=== PATIENT | male | born 1955 | race Two or more races ===

== ENCOUNTER 2016-08-17 17:58 | Inpatient (IN) | payer OTHER ==
[~2016-08-17] VITALS: Ht 172.7 cm; Wt 107.0 kg
[2016-08-17] MEDS: IV NORMAL SALINE 1000ML BAG 1,000 ML IV SCH (00:45)
[~2016-08-17 17:58] MED LIST: AMLO5TAB2 PO; CARV12.52 PO; FURO40TA4 PO; HYDR-2762 PO; INSU100C4 SQ; INSU100I13 SQ; LISI-334 PO; LOSA50TA2 PO
[2016-08-17 18:40] LABS: HEMATOCRIT 34.9 % (39.0-53.0); HEMOGLOBIN 10.9 g/dL (13.0-17.5); MEAN CORPUSCULAR HEMOGLOBIN 23 pg (25-35); MEAN CORPUSCULAR HGB CONC 31 g/dL (31-37); MEAN CORPUSCULAR VOLUME 73 fL (79-100); RED BLOOD COUNT 4.77 x10^6/uL (4.30-5.70); RED CELL DISTRIBUTION WIDTH 17.6 % (11.5-14.5); WHITE BLOOD COUNT 8.4 x10^3/uL (4.0-11.0)
[2016-08-17 18:41] LABS: BASO % 0 % (0-3); EOS % 3 % (0-3); LYMPH # 1.4 x10^3/uL (1.0-4.8); LYMPH % 16 % (24-48); MONO % 8 % (0-9); NEUT % 73 % (31-73); PLATELET COUNT 242 x10^3/uL (140-400)
[2016-08-17 18:55] LABS: CALCIUM 8.8 mg/dL (8.5-10.1); CREATININE 1.9 mg/dL (0.7-1.3); GFR 36.2; POTASSIUM 4.6 mmol/L (3.5-5.1)
[2016-08-17] MEDS ORDERED: DEXTROSE 50% 25 GM / 50ML DISP.SYRIN. IV ONE ×2 (18:57→19:00)
[2016-08-17] MEDS ORDERED: IV NORMAL SALINE 1000ML BAG 1,000 ML IV ONE (19:15)
--- NOTE | 2016-08-17 19:30 | RAD ---
PROCEDURE CT head without intravenous contrast. HISTORY Altered mental status, evaluate for hemorrhage. TECHNIQUE Axial images are obtained of the head from the skull base through the vertex without IV contrast Exposure: One or more of the following individualized dose reduction techniques were utilized for this examination: 1. Automated exposure control. 2. Adjustment of the mA and/or kV according to patient size. 3. Use of iterative reconstruction technique. COMPARISON CT head June 24, 2016. FINDINGS The ventricles are appropriate in size, shape, and location for the patient's age.No obvious intracranial mass, mass-effect, midline shift, hemorrhage or obvious acute infarction is identified.Basilar cisterns are patent. Bone windows demonstrate no acute calvarial abnormality.Bilateral maxillary sinuses and ethmoid mucosal disease is seen.. IMPRESSION No acute intracranial process. Please note that CT can be relatively insensitive to acute ischemic infarction for up to 24 hours after symptom onset. Electronically signed by: Ashok Landers MD (Aug 17, 2016 19:28:37)
[2016-08-17 19:34] LABS: PLT ESTIMATE ADEQUATE (ADEQUATE)
[2016-08-17 19:35] LABS: ANISOCYTOSIS SLIGHT; HYPOCHROMIA MOD; POIKILOCYTOSIS SLIGHT
[2016-08-17 19:38] LABS: MICROCYTOSIS SLIGHT
--- NOTE | 2016-08-17 21:07 | PHYS DOC ---
Past Medical History Past Medical History: Diabetes-Type II, Hypertension Past Surgical History: Other Additional Past Surgical Histo: LEFT TOE AMPUTATION, LEG LEG SKIN GRAFT D/T WOUND,KNEE Alcohol Use: None Drug Use: None Adult General Chief Complaint Chief Complaint: ALTERED MENTAL STATUS HPI HPI 60-year-old male presents with an episode of unresponsiveness after her being found on the sidewalk. In the ED, his blood sugar was 35 and an amp of D50 was administered. Patient is still altered and can answer basic questions but appears confused. His rectal temp upon arrival was 93.6. Patient was actively warmed with a bear hugger. His at bedside states he had a similar hypoglycemic episode around the and was admitted for it at that time. There are no obvious injuries. The patient does not have any specific complaints. He is in no acute distress. Review of Systems Review of Systems Constitutional: Denies fever or chills [] Eyes: Denies change in visual acuity, redness, or eye pain [] HENT: Denies nasal congestion or sore throat [] Respiratory: Denies cough or shortness of breath [] Cardiovascular: No additional information not addressed in HPI [] GI: Denies abdominal pain, nausea, vomiting, bloody stools or diarrhea [] : Denies dysuria or hematuria [] Musculoskeletal: Denies back pain or joint pain [] Integument: Denies rash or skin lesions [] Neurologic: Denies headache, focal weakness or sensory changes [] Endocrine: Denies polyuria or polydipsia [] Current Medications Current Medications Current Medications Medications (Trade) Dose Ordered Sig/Mary Start Time Stop Time Status Last Admin Dose Admin Acetaminophen (Tylenol) 650 mg PRN Q4HRS PRN 08/17/16 21:15 08/18/16 21:14 Dextrose 25 gm 1X ONCE 08/17/16 19:00 08/17/16 19:01 DC 08/17/16 18:59 25 GM Ondansetron HCl 4 mg 4 mg PRN Q8HRS PRN 08/17/16 21:15 08/18/16 21:14 Sodium Chloride (Iv Sodium Chloride 0.9% 1000ml Bag) 1,000 ml @ 50 mls/hr Q20H 08/17/16 21:07 08/18/16 21:06 Allergies Allergies Allergies Coded Allergies Type Severity Reaction Last Updated Verified No Known Drug Allergies 1/21/15 No Physical Exam Physical Exam Constitutional: Well developed, well nourished, no acute distress, non-toxic appearance. [] HENT: Normocephalic, atraumatic, bilateral external ears normal, oropharynx moist, no oral exudates, nose normal. [] Eyes: PERRLA, EOMI, conjunctiva normal, no discharge. [] Neck: Normal range of motion, no tenderness, supple, no stridor. [] Cardiovascular:Heart rate regular rhythm, no murmur [] Lungs & Thorax: Bilateral breath sounds clear to auscultation [] Abdomen: Bowel sounds normal, soft, no tenderness, no masses, no pulsatile masses. [] Skin: Warm, dry, no erythema, no rash. [] Back: No tenderness, no CVA tenderness. [] Extremities: No tenderness, no cyanosis, no clubbing, ROM intact, no edema. [] Neurologic: Alert and oriented X 1 (place), normal motor function, normal sensory function, no focal deficits noted. [] Psychologic: Affect normal, judgement normal, mood normal. [] Current Patient Data Vital Signs Vital Signs Date Time Temp Pulse Resp B/P Pulse Ox O2 Delivery O2 Flow Rate FiO2 08/17/16 20:50 97.5 97.5 08/17/16 20:04 70 18 191/102 98 Room Air Lab Values Laboratory Tests Test 08/17/16 18:30 White Blood Count 8.4x10^3/uL (4.0-11.0) Red Blood Count 4.77x10^6/uL (4.30-5.70) Hemoglobin 10.9g/dL (13.0-17.5) L Hematocrit 34.9% (39.0-53.0) L Mean Corpuscular Volume 73fL (79-100) L Mean Corpuscular Hemoglobin 23pg (25-35) L Mean Corpuscular Hemoglobin Concent 31g/dL (31-37) Red Cell Distribution Width 17.6% (11.5-14.5) H Platelet Count 242x10^3/uL (140-400) Neutrophils (%) (Auto) 73% (31-73) Lymphocytes (%) (Auto) 16% (24-48) L Monocytes (%) (Auto) 8% (0-9) Eosinophils (%) (Auto) 3% (0-3) Basophils (%) (Auto) 0% (0-3) Neutrophils # (Auto) 6.1x10^3uL (1.8-7.7) Lymphocytes # (Auto) 1.4x10^3/uL (1.0-4.8) Monocytes # (Auto) 0.6x10^3/uL (0.0-1.1) Eosinophils # (Auto) 0.2x10^3/uL (0.0-0.7) Basophils # (Auto) 0.0x10^3/uL (0.0-0.2) Platelet Estimate Adequate (ADEQUATE) Hypochromasia Mod Poikilocytosis Slight Anisocytosis Slight Microcytosis Slight Sodium Level 143mmol/L (136-145) Potassium Level 4.6mmol/L (3.5-5.1) Chloride Level 111mmol/L (98-107) H Carbon Dioxide Level 24mmol/L (21-32) Anion Gap 8 (6-14) Blood Urea Nitrogen 40mg/dL (8-26) H Creatinine 1.9mg/dL (0.7-1.3) H Estimated GFR (Cockcroft-Gault) 36.2 Glucose Level 35mg/dL (70-99) *L Calcium Level 8.8mg/dL (8.5-10.1) Laboratory Tests 08/17/16 18:30 Laboratory Tests 08/17/16 18:30 EKG EKG [] Radiology/Procedures Radiology/Procedures CT of his head did not demonstrate an acute intercranial process as interpreted by the radiologist. One view of his chest did not demonstrate an acute process as interpreted by me. Course & Med Decision Making Course & Med Decision Making Pertinent Labs and Imaging studies reviewed. (See chart for details) 60-year-old male who presents with altered mental status after a suspected hypoglycemic episode was given an amp of D50 and his blood glucose rechecked and it was 120. Patient was given a liter bolus and then fluids were set at 50 mL an hour per Dr. Martins's recommendation. Patient's mental status has improved while in the department but he still appears slightly confused. CT of his head was negative for any traumatic injury or abnormality. Patient was actively rewarmed and his temperature improved to 97.5 Fahrenheit. The rest of his laboratory workup was essentially unremarkable. Dragon Disclaimer Dragon Disclaimer This electronic medical record was generated, in whole or in part, using a voice recognition dictation system. Departure Departure Impression: Primary Impression: Hypoglycemia Additional Impressions: Altered mental status Hypothermia Disposition: ADMITTED INPATIENT Admitting Physician: Other Condition: STABLE Referrals: CLAUDIA MARTINS MD (PCP) Problem Qualifiers MENG PRIETO DO Aug 17, 2016 21:07
[2016-08-17] MEDS ORDERED: ACETAMINOPHEN 325 MG TABLET. PO PRN (21:15)
[2016-08-17] MEDS ORDERED: ONDANSETRON PF 4 MG/2 ML VIAL. IV PRN (21:15)
[2016-08-17 22:07] LABS: BILIRUBIN,URINE NEGATIVE (NEG); GLUCOSE,URINE NEGATIVE (NEG); NITRITE,URINE POSITIVE (NEG); PH,URINE 5.5; PROTEIN,URINE >=300 mg/dL (NEG-TRACE); UROBILINOGEN,URINE 0.2 mg/dL (0.2 mg/dL)
[2016-08-17 22:14] LABS: BACTERIA,URINE MANY /HPF (0-FEW); RBC,URINE 0 /HPF (0-2); WBC,URINE TNTC /HPF (0-4)
[2016-08-17 22:15] LABS: SQUAMOUS EPITHELIAL CELL,UR FEW /LPF
--- NOTE | 2016-08-17 22:50 | ACF ---
Admission Forms Criteria MENTAL STATUS CHANGE Clinical Indications for Inpatient Care (Place 'X' for any and all applicable criteria): Ongoing inpatient care may be needed for ANY ONE of the following(1)(2)(3)(5)(6) : [X]I. Suspected serious etiology (eg, medical disorder, GAS CUTTING MACHINE OPERATOR event) of mental status change [ ]II. Danger to self or others not manageable at lower level of care [ ]III. Grave disability (eg, inability to perform self care necessary at lower level of care) [ ]IV. Agitation or inappropriate behavior interfering with care for primary condition (eg, attempting to discontinue lines or drains prematurely, unable to cooperate with respiratory care) [ ]V. Delirium [A] [D][E] as described by ANY ONE of the following(26): [ ]a) Delirium due to alcohol or sedative [F] withdrawal [ ]b) Delirium of uncertain etiology that has not responded to appropriate empiric treatment [ ]c) Delirium that prevents performance of a life-sustaining function (eg, feeding or hydrating oneself) [ ]. General contraindications and/or Inappropriate clinical situations for Observational Care in patients with Mental Status Change, when ANY ONE of the following is required: [ ]a) Prediction of prolongation of LOS based on ANY ONE of the following may be considered as a contraindication for observational care 2, 3, 4, 5, 6, 7, 8, 9, 10, 11 [ ]i) Age > 65 yrs. [ ]ii) Patient arriving by ambulance [ ]iii) Patient with high acuity [ ]iv) Patient requiring vital sign monitoring [ ]v) Patient on IV medication [ ]b) Systolic blood pressures 180mmHg 3,12 [ ]c) Patient with altered mental status including delirium and other alteration of consciousness, (3) [ ]d) Patient whose discharge disposition will be to a [place] [facility] home or rehabilitation home should not be managed in Emergency Department Observation Unit. CMS rule requires 3 days hospital stay before such placement.3,13 [ ]e) Patient with failure to thrive due to broad array of etiologies 3,16,17 [ ]f) Inability to ambulate 3,14 Extended stay beyond goal length of stay for the primary condition may be needed until ALL of the following are present(3)(5): [ ]a) Underlying medical etiology of mental status change is absent, or has been established and adequately treated [ ]b) Danger to self or others is absent or manageable at lower level of care. [ ]c) Behavior crisis management, including physical or chemical restraints, is not required or available at lower level of car [ ]d) Substance or alcohol withdrawal is absent or manageable at lower level of care. [ ]e) Behavioral symptoms (eg, agitation, somnolence, inappropriate behavior) are absent, or are manageable at lower level of care. The original [facility] content created by [facility] has been revised. The portions of the content which have been revised are identified through the use of italic text or in bold, and [facility] has neither reviewed nor approved the modified material. All other unmodified content is copyright [facility]. Please see references footnoted in the original [facility] edition 2016 Admission Criteria Met?: Yes MERARI VILLASEÑOR Aug 17, 2016 22:50
[2016-08-17 23:00] VITALS: BP 178/101
[2016-08-18] MEDS ORDERED: AMLODIPINE BESYLATE 5 MG TABLET PO ONE (01:00)
[2016-08-18 03:00] VITALS: BP 169/87
[2016-08-18 05:52] LABS: CALCIUM 8.4 mg/dL (8.5-10.1); CREATININE 1.7 mg/dL (0.7-1.3); GFR 41.2; POTASSIUM 4.8 mmol/L (3.5-5.1)
[2016-08-18 06:11] LABS: BASO % 1 % (0-3); EOS % 3 % (0-3); HEMATOCRIT 30.1 % (39.0-53.0); HEMOGLOBIN 9.6 g/dL (13.0-17.5); LYMPH # 1.5 x10^3/uL (1.0-4.8); LYMPH % 18 % (24-48); MEAN CORPUSCULAR HEMOGLOBIN 23 pg (25-35); MEAN CORPUSCULAR HGB CONC 32 g/dL (31-37); MEAN CORPUSCULAR VOLUME 71 fL (79-100); MONO % 9 % (0-9); NEUT % 69 % (31-73); PLATELET COUNT 234 x10^3/uL (140-400); RED BLOOD COUNT 4.23 x10^6/uL (4.30-5.70); RED CELL DISTRIBUTION WIDTH 17.3 % (11.5-14.5); WHITE BLOOD COUNT 8.1 x10^3/uL (4.0-11.0)
[2016-08-18 07:00] VITALS: BP 164/87
--- NOTE | 2016-08-18 07:54 | EKG ---
[facility] [address] [place] [address] Test Date: 2016-08-17 Test Time: 18:45:22 Pat Name: JENNIFFER JARRETT Department: Room: [facility] Gender: M Catering Operations Manager: : 1955 Requested By: MENG PRIETO Order Number: [id number] Reading MD: Misha Miranda Measurements Intervals [place] Rate: 65 P: [place]: QRS: 23 QRSD: 78 T: 11 QT: 412 QTc: 429 Interpretive Statements SINUS RHYTHM QRS(T) CONTOUR ABNORMALITY CONSIDER ANTEROLATERAL MYOCARDIAL DAMAGE POSSIBLY ABNORMAL ECG Electronically Signed On 09-01-2016 14:44:59 STATION MECHANIC APPRENTICE by Misha Miranda
--- NOTE | 2016-08-18 07:56 | EKG ---
[facility] [address] [place] [address] Test Date: 2016-08-17 Test Time: 20:26:17 Pat Name: JENNIFFER JARRETT Department: Room: [facility] Gender: M Inventory Associate: : 1955 Requested By: CLAUDIA MARTINS Order Number: [id number] Reading MD: Misha Miranda Measurements Intervals [place] Rate: 70 P: -37 ND: 144 QRS: 17 QRSD: 86 T: 39 QT: 412 QTc: 448 Interpretive Statements SINUS RHYTHM NO SPECIFIC ECG ABNORMALITIES Electronically Signed On 09-01-2016 14:45:46 NATIONAL SALES CONSULTANT by Misha Miranda
--- NOTE | 2016-08-18 08:11 | PDOC ---
GENERAL General: see dictated H&P. patient at his baseline mentally. no further hypothermia. sugar ok this am. Problems: VITAL SIGNS Vital Signs: Vital Signs Date Time Temp Pulse Resp B/P Pulse Ox O2 Delivery O2 Flow Rate FiO2 08/18/16 03:00 98.6 78 20 169/87 95 Room Air 98.6 I & O I & O Intake and Output 08/18/16 07:00 Intake Total 1300 ml Balance 1300 ml Intake Oral 300 ml IV Total 1000 ml ALLERGIES Allergies: Allergies Coded Allergies Type Severity Reaction Last Updated Verified No Known Drug Allergies 07/23/14 No MEDS Medications: Current Medications Medications (Trade) Dose Ordered Sig/Mary Start Time Stop Time Status Last Admin Dose Admin Acetaminophen (Tylenol) 650 mg PRN Q4HRS PRN 08/17/16 21:15 08/18/16 21:14 Amlodipine Besylate (Norvasc) 5 mg 1X ONCE 08/18/16 01:00 08/18/16 01:01 DC 08/18/16 00:55 5 MG Dextrose 25 gm 1X ONCE 08/17/16 19:00 08/17/16 19:01 DC 08/17/16 18:59 25 GM Ondansetron HCl 4 mg 4 mg PRN Q8HRS PRN 08/17/16 21:15 08/18/16 21:14 Sodium Chloride (Iv Sodium Chloride 0.9% 1000ml Bag) 1,000 ml @ 50 mls/hr Q20H 08/17/16 21:07 08/18/16 21:06 08/17/16 00:45 50 MLS/HR LAB Lab: Laboratory Tests Test 08/17/16 18:30 08/17/16 21:55 08/18/16 05:04 08/18/16 08:06 White Blood Count 8.4x10^3/uL (4.0-11.0) 8.1x10^3/uL (4.0-11.0) Red Blood Count 4.77x10^6/uL (4.30-5.70) 4.23x10^6/uL (4.30-5.70) Hemoglobin 10.9g/dL (13.0-17.5) 9.6g/dL (13.0-17.5) Hematocrit 34.9% (39.0-53.0) 30.1% (39.0-53.0) Mean Corpuscular Volume 73fL (79-100) 71fL (79-100) Mean Corpuscular Hemoglobin 23pg (25-35) 23pg (25-35) Mean Corpuscular Hemoglobin Concent 31g/dL (31-37) 32g/dL (31-37) Red Cell Distribution Width 17.6% (11.5-14.5) 17.3% (11.5-14.5) Platelet Count 242x10^3/uL (140-400) 234x10^3/uL (140-400) Neutrophils (%) (Auto) 73% (31-73) 69% (31-73) Lymphocytes (%) (Auto) 16% (24-48) 18% (24-48) Monocytes (%) (Auto) 8% (0-9) 9% (0-9) Eosinophils (%) (Auto) 3% (0-3) 3% (0-3) Basophils (%) (Auto) 0% (0-3) 1% (0-3) Neutrophils # (Auto) 6.1x10^3uL (1.8-7.7) 5.5x10^3uL (1.8-7.7) Lymphocytes # (Auto) 1.4x10^3/uL (1.0-4.8) 1.5x10^3/uL (1.0-4.8) Monocytes # (Auto) 0.6x10^3/uL (0.0-1.1) 0.8x10^3/uL (0.0-1.1) Eosinophils # (Auto) 0.2x10^3/uL (0.0-0.7) 0.2x10^3/uL (0.0-0.7) Basophils # (Auto) 0.0x10^3/uL (0.0-0.2) 0.0x10^3/uL (0.0-0.2) Platelet Estimate Adequate (ADEQUATE) Hypochromasia Mod Poikilocytosis Slight Anisocytosis Slight Microcytosis Slight Sodium Level 143mmol/L (136-145) 141mmol/L (136-145) Potassium Level 4.6mmol/L (3.5-5.1) 4.8mmol/L (3.5-5.1) Chloride Level 111mmol/L (98-107) 111mmol/L (98-107) Carbon Dioxide Level 24mmol/L (21-32) 22mmol/L (21-32) Anion Gap 8 (6-14) 8 (6-14) Blood Urea Nitrogen 40mg/dL (8-26) 36mg/dL (8-26) Creatinine 1.9mg/dL (0.7-1.3) 1.7mg/dL (0.7-1.3) Estimated GFR (Cockcroft-Gault) 36.2 41.2 Glucose Level 35mg/dL (70-99) 117mg/dL (70-99) Calcium Level 8.8mg/dL (8.5-10.1) 8.4mg/dL (8.5-10.1) Urine Collection Type Unknown Urine Color Yellow Urine Clarity Cloudy Urine pH 5.5 Urine Specific [place] 1.015 Urine Protein >=300mg/dL (NEG-TRACE) Urine Glucose (UA) Negativemg/dL (NEG) Urine Ketones (Stick) Negativemg/dL (NEG) Urine Blood Moderate (NEG) Urine Nitrite Positive (NEG) Urine Bilirubin Negative (NEG) Urine Urobilinogen Dipstick 0.2mg/dL (0.2 mg/dL) Urine Leukocyte Esterase Moderate (NEG) Urine RBC 0/HPF (0-2) Urine WBC Tntc/HPF (0-4) Urine Squamous Epithelial Cells Few/LPF Urine Bacteria Many/HPF (0-FEW) Urine Hyaline Casts Few/HPF Glucose (Fingerstick) 101mg/dL (70-99) CLAUDIA MARTINS MD Aug 18, 2016 08:11
[2016-08-18] MEDS ORDERED: HYDROCODONE/APAP 7.5/325MG TABLET. PO PRN ×2 (08:15→08:30)
[2016-08-18] MEDS: INSULIN ASPART 300 UNITS/3 ML INSULN.PEN SQ SCH ×3 (08:30→16:30)
--- NOTE | 2016-08-18 08:57 | RAD ---
Portable chest, 08/17/2016: History: Mental status change Comparison is made to a study from 06/27/2016. The heart is mildly enlarged. The pulmonary vascularity is normal. Previous interstitial opacities have resolved. No acute infiltrates are seen. There is no evidence of pleural fluid. IMPRESSION: 1. Resolution of the previously seen mild congestive heart failure. 2. No acute abnormality is detected.
[2016-08-18] MEDS: LEVOFLOXACIN 500 MG TABLET PO SCH (09:42)
[2016-08-18] MEDS: FUROSEMIDE 40 MG TABLET PO SCH (09:42)
[2016-08-18] MEDS: LOSARTAN POTASSIUM 50 MG TABLET. PO SCH (09:43)
[2016-08-18] MEDS: AMLODIPINE BESYLATE 5 MG TABLET PO SCH (09:43)
[2016-08-18] MEDS: CARVEDILOL 12.5 MG TABLET PO SCH ×2 (09:43→17:48)
[2016-08-18 11:00] VITALS: BP 89/62
--- NOTE | 2016-08-18 11:52 | HP ---
ADMIT DATE: 08/17/2016 CHIEF COMPLAINT AND HISTORY OF PRESENT ILLNESS: This is a 60-year-old male who is well known to me from followup in the office. The patient was found unresponsive out in his yard on the day of admission. It was unsure how long he had been out there, brought to the Emergency Room where he was found to be hypoglycemic and hypothermic. He was placed on a warming blanket and did improve with D50 on administration. He has had a similar hypoglycemic episode in June some time and had been seen in the office actually earlier on the day of admission where he did have a dry cough for a month, feeling bad, had been given a prescription for Levaquin, which I am not sure he did even have a chance to start yet and his initial lab is remarkable for what looks like a possible urinary tract infection. PAST MEDICAL HISTORY: Remarkable for ____ with a prior left toe amputation, diabetes, diabetic neuropathy, diabetic nephropathy, hypertension, history of diastolic congestive heart failure. MEDICATIONS: Brought with the patient listed on the computer and have been addressed. ALLERGIES: He has no known drug allergies. SOCIAL HISTORY: The patient is a nonsmoker, nondrinker, , and lives at home with his , does not abuse alcohol or drugs. FAMILY HISTORY: Noncontributory. REVIEW OF SYSTEMS: As mentioned above. PHYSICAL EXAMINATION: GENERAL: He is a well-developed, well-nourished male with his mental status back to his normal by the time of my examination. VITAL SIGNS: Stable. He is afebrile. HEENT: Unremarkable. NECK: Supple, without any thyromegaly. CHEST: Clear to auscultation and percussion. HEART: Regular rate and rhythm without S3, S4 or murmur. ABDOMEN: Soft, nontender, without hepatosplenomegaly or mass. EXTREMITIES: Without cyanosis, clubbing or edema. NEUROLOGIC: He is intact. IMPRESSION: Profound hypoglycemia with unresponsiveness and hypothermia, likely due to lying outside on a ____ and probable urinary tract infection. PLAN: The patient has been admitted. Levaquin will be continued. Urine will be cultured. Sugars will be followed. IV fluids were instituted and the patient will be monitored, managed and treated appropriately. CLAUDIA MARTINS MD DR: MARIA/paul JOB#: [id number] / [id number]
[2016-08-18 15:00] VITALS: BP 135/69
[2016-08-18] MEDS: IV NORMAL SALINE 1000ML BAG 1,000 ML IV SCH (17:07)
[2016-08-18 19:43] VITALS: BP 146/79
[2016-08-18] MEDS ORDERED: INSULIN DETEMIR 300 UNITS/3 ML INSULN.PEN. SQ SCH (21:00)
[2016-08-18 23:34] VITALS: BP 152/79
[2016-08-19 03:42] VITALS: BP 166/96
[2016-08-19] MEDS: LEVOFLOXACIN 500 MG TABLET PO SCH (06:00)
[2016-08-19 07:00] VITALS: BP 165/87
[2016-08-19] MEDS: INSULIN ASPART 300 UNITS/3 ML INSULN.PEN SQ SCH (07:30)
--- NOTE | 2016-08-19 07:48 | PDOC ---
GENERAL General: see discharge summary. Problems: VITAL SIGNS Vital Signs: Vital Signs Date Time Temp Pulse Resp B/P Pulse Ox O2 Delivery O2 Flow Rate FiO2 08/19/16 03:42 98.1 79 20 166/96 97 Room Air 98.1 I & O I & O Intake and Output 08/19/16 07:00 Intake Total 1530 ml Output Total 0 ml Balance 1530 ml Intake Oral 1530 ml Output Urine Total 0 ml # Voids 3 # Bowel Movements 1 ALLERGIES Allergies: Allergies Coded Allergies Type Severity Reaction Last Updated Verified No Known Drug Allergies 07/23/14 No MEDS Medications: Current Medications Medications (Trade) Dose Ordered Sig/Mary Start Time Stop Time Status Last Admin Dose Admin Acetaminophen (Tylenol) 650 mg PRN Q4HRS PRN 08/17/16 21:15 08/18/16 21:14 DC Acetaminophen/ Hydrocodone Bitart (Lortab 7.5/325) 2 tab PRN Q4HRS PRN 08/18/16 08:30 Amlodipine Besylate (Norvasc) 5 mg DAILY 08/18/16 09:00 08/18/16 09:43 5 MG Carvedilol (Coreg) 12.5 mg BIDWMEALS 08/18/16 09:00 08/18/16 17:48 12.5 MG Dextrose 25 gm 1X ONCE 08/17/16 19:00 08/17/16 19:01 DC 08/17/16 18:59 25 GM Furosemide (Lasix) 40 mg DAILY 08/18/16 09:00 08/18/16 09:42 40 MG Insulin Aspart (Novolog) 10 units TIDAC 08/18/16 08:30 08/18/16 13:31 10 UNITS Insulin Detemir (Levemir) 20 units QHS 08/18/16 21:00 Levofloxacin (Levaquin) 500 mg DAILY06 08/18/16 09:00 08/19/16 06:00 500 MG Losartan Potassium (Cozaar) 100 mg DAILY 08/18/16 09:00 08/18/16 09:43 100 MG Ondansetron HCl 4 mg 4 mg PRN Q8HRS PRN 08/17/16 21:15 08/18/16 21:14 DC Sodium Chloride (Iv Sodium Chloride 0.9% 1000ml Bag) 1,000 ml @ 50 mls/hr Q20H 08/17/16 21:07 08/18/16 21:06 DC 08/17/16 00:45 50 MLS/HR LAB Lab: Laboratory Tests Test 08/18/16 08:06 08/18/16 11:39 08/18/16 16:34 08/18/16 17:06 Glucose (Fingerstick) 101mg/dL (70-99) 211mg/dL (70-99) 52mg/dL (70-99) 62mg/dL (70-99) Test 08/18/16 17:50 08/18/16 21:18 08/19/16 07:31 Glucose (Fingerstick) 94mg/dL (70-99) 159mg/dL (70-99) 90mg/dL (70-99) CLAUDIA MARTINS MD Aug 19, 2016 07:48
--- NOTE | 2016-08-19 08:40 | DS ---
DATE OF DISCHARGE: 08/19/2016 PRIMARY DIAGNOSIS: Profound hypoglycemia. ADDITIONAL DIAGNOSES: Hypothermia from lying outside, being unresponsive from hypoglycemia, diabetic retinopathy, hypertension, peripheral arterial disease. CHIEF COMPLAINT AND HISTORY OF PRESENT ILLNESS: This 60-year-old male who is well known to me followed in the office. The patient was found in the yard for an unknown length of time, unresponsive, and brought by ambulance to the Emergency Room where he was found to be hypoglycemic and responded to D50. SUMMARY OF STAY: The patient was admitted. Home insulin doses were continued. He did have some low sugars on the 16th throughout the day time, and at this point we are going to cut his meal-time doses of short-acting to half, which would be 5 units with meals, and adjust accordingly as an outpatient. The rest of his lab was relatively similar ____ he was at. He was initially quite hypothermic, responded to a hug, and had no problems with temperature regulation throughout the stay, suggesting it was all due to the cold exposure on the day of admission while he was unresponsive outside. He was felt ready for discharge, at his baseline, on the day of dismissal and this was accomplished. DISPOSITION: The patient was discharged to home. DIET: ADA diet. ACTIVITY: As tolerated, office in 2 weeks. DISCHARGE MEDICATIONS: Will be his regular home meds with the exception of the short-acting insulin going to 5 a.c. t.i.d. Interestingly also, his home meds were restarted during the stay, but he is missing a blood pressure medicine and we will restart it in addition. CLAUDIA MARTINS MD DR: MARIA/paul JOB#: [id number] / [id number] CLAUDIA Manuel MD
[2016-08-19] MEDS: FUROSEMIDE 40 MG TABLET PO SCH (09:00)
[2016-08-19] MEDS: LOSARTAN POTASSIUM 50 MG TABLET. PO SCH (09:00)
[2016-08-19 09:01] VITALS: BP 165/87
[2016-08-19] MEDS: CARVEDILOL 12.5 MG TABLET PO SCH (09:01)
[2016-08-19] MEDS: AMLODIPINE BESYLATE 5 MG TABLET PO SCH (09:01)
[2016-08-19] MEDS ORDERED: LEVO500T8 PO ×2 (10:53→10:56)
[2016-08-19] MEDS ORDERED: INSU100C4 SQ ×2 (10:55→10:56)
== END 2016-08-19 11:23 | disposition home or self-care (01) | DRG 638 ==
LOC: ER 17:58 → 6 SOUTH 20:10
PROVIDERS: ADMIT Family Medicine; ATTEND Family Medicine
DX: E11.649 Type 2 diabetes mellitus with hypoglycemia without coma (principal); I50.32 Chronic diastolic (congestive) heart failure; E11.40 Type 2 diabetes mellitus with diabetic neuropathy, unspecified; E11.21 Type 2 diabetes mellitus with diabetic nephropathy; T68.XXXA Hypothermia, initial encounter; I11.0 Hypertensive heart disease with heart failure; E11.51 Type 2 diabetes mellitus with diabetic peripheral angiopathy without gangrene; Z89.422 Acquired absence of other left toe(s); Z79.4 Long term (current) use of insulin
CPT/HCPCS: 36415; 70450; 71010; 80048; 81001; 82947; 85007; 85027; 87086; 87186; 93005; 96361; 96374; J1815; J7030; J7042; 99285-25

== ENCOUNTER 2017-01-05 10:24 | Inpatient (IN) | payer OTHER ==
[~2017-01-05] VITALS: Ht 175.3 cm; Wt 93.1 kg
[~2017-01-05 10:24] MED LIST changes: +LEVO500T8 PO
[2017-01-05 10:56] LABS: BASO % 1 % (0-3); EOS % 2 % (0-3); HEMATOCRIT 30.3 % (39.0-53.0); HEMOGLOBIN 9.8 g/dL (13.0-17.5); LYMPH # 1.2 x10^3/uL (1.0-4.8); LYMPH % 19 % (24-48); MEAN CORPUSCULAR HEMOGLOBIN 25 pg (25-35); MEAN CORPUSCULAR HGB CONC 32 g/dL (31-37); MEAN CORPUSCULAR VOLUME 76 fL (79-100); MONO % 7 % (0-9); NEUT % 71 % (31-73); PLATELET COUNT 181 x10^3/uL (140-400); RED BLOOD COUNT 3.99 x10^6/uL (4.30-5.70); RED CELL DISTRIBUTION WIDTH 16.1 % (11.5-14.5); WHITE BLOOD COUNT 6.5 x10^3/uL (4.0-11.0)
[2017-01-05] MEDS ORDERED: MECLIZINE HCL 12.5 MG TABLET. PO ONE (11:00)
[2017-01-05 11:04] LABS: CALCIUM 8.5 mg/dL (8.5-10.1); CREATININE 2.9 mg/dL (0.7-1.3); GFR 22.2; POTASSIUM 5.1 mmol/L (3.5-5.1)
[2017-01-05 11:10] LABS: ALBUMIN 2.7 g/dL (3.4-5.0); ALBUMIN/GLOBULIN RATIO 0.8 (1.0-1.7); TOTAL BILIRUBIN 0.2 mg/dL (0.2-1.0); TOTAL PROTEIN 6.1 g/dL (6.4-8.2)
--- NOTE | 2017-01-05 11:19 | EKG ---
[facility] [address] [place] [address] Test Date: 2017-01-05 Test Time: 10:30:32 Pat Name: JENNIFFER JARRETT Department: Room: Gender: M Playground Attendant: : 1955 Requested By: CLOVER ALVAREZ Order Number: [id number] Reading MD: Measurements Intervals [place] Rate: 68 P: 28 [place]: 168 QRS: 22 QRSD: 78 T: 72 QT: 400 QTc: 426 Interpretive Statements SINUS RHYTHM QRS(T) CONTOUR ABNORMALITY CONSIDER ANTEROLATERAL MYOCARDIAL DAMAGE RI6.01 Unconfirmed report No previous ECG available for comparison
[2017-01-05] MEDS ORDERED: IV NORMAL SALINE 1000ML BAG 1,000 ML IV ONE (11:30)
--- NOTE | 2017-01-05 12:00 | PHYS DOC ---
Past Medical History Past Medical History: Diabetes-Type II, Hypertension Past Surgical History: Other Additional Past Surgical Histo: LEFT TOE AMPUTATION, LEG LEG SKIN GRAFT D/T WOUND,KNEE Alcohol Use: None Drug Use: None Adult General Chief Complaint Chief Complaint: MECHANICAL FALL HPI HPI Patient is a 61 year old male presents emergency Department stating he's had 2 days history of becoming dizzy after he has been standing. He states when he sits down he seems to be fine. He states that they have changed his blood pressure medications multiple different times. Patient denies any vomiting however he does state that he's had some nausea with the dizziness. Patient denies any fever, chills. Review of Systems Review of Systems Constitutional: Denies fever or chills [] Eyes: Denies change in visual acuity, redness, or eye pain [] HENT: Denies nasal congestion or sore throat [] Respiratory: Denies cough or shortness of breath [] Cardiovascular: No additional information not addressed in HPI [] GI: Denies abdominal pain, nausea, vomiting, bloody stools or diarrhea [] : Denies dysuria or hematuria [] Musculoskeletal: Denies back pain or joint pain [] Integument: Denies rash or skin lesions [] Neurologic: Denies headache, focal weakness or sensory changes. C/o dizziness Endocrine: Denies polyuria or polydipsia [] Current Medications Current Medications Current Medications Medications (Trade) Dose Ordered Sig/Mary Start Time Stop Time Status Last Admin Dose Admin Meclizine HCl (Antivert) 25 mg 1X ONCE 01/05/17 11:00 01/05/17 11:01 DC 01/05/17 10:58 25 MG Sodium Chloride 1,000 ml @ 1,000 mls/hr 1X ONCE 01/05/17 11:30 01/05/17 12:29 01/05/17 11:26 1,000 MLS/HR Allergies Allergies Allergies Coded Allergies Type Severity Reaction Last Updated Verified No Known Drug Allergies 07/23/14 No Physical Exam Physical Exam Constitutional: Well developed, well nourished, no acute distress, non-toxic appearance. [] HENT: Normocephalic, atraumatic, bilateral external ears normal, oropharynx moist, no oral exudates, nose normal. [] Eyes: PERRLA, EOMI, conjunctiva normal, no discharge. [] Neck: Normal range of motion, no tenderness, supple, no stridor. [] Cardiovascular:Heart rate regular rhythm, no murmur [] Lungs & Thorax: Bilateral breath sounds clear to auscultation [] Skin: Warm, dry, no erythema, no rash. [] Back: No tenderness Extremities: No tenderness, no cyanosis, no clubbing, ROM intact, no edema. [] Neurologic: Alert and oriented X 3, normal motor function, normal sensory function, no focal deficits noted. [] Psychologic: Affect normal, judgement normal, mood normal. [] Current Patient Data Vital Signs Vital Signs Date Time Temp Pulse Resp B/P (MAP) Pulse Ox O2 Delivery O2 Flow Rate FiO2 01/05/17 10:35 98.0 66 20 122/64 (83) 97 Room Air 98.0 Lab Values Laboratory Tests Test 01/05/17 10:40 White Blood Count 6.5 x10^3/uL (4.0-11.0) Red Blood Count 3.99 x10^6/uL (4.30-5.70) L Hemoglobin 9.8 g/dL (13.0-17.5) L Hematocrit 30.3 % (39.0-53.0) L Mean Corpuscular Volume 76 fL (79-100) L Mean Corpuscular Hemoglobin 25 pg (25-35) Mean Corpuscular Hemoglobin Concent 32 g/dL (31-37) Red Cell Distribution Width 16.1 % (11.5-14.5) H Platelet Count 181 x10^3/uL (140-400) Neutrophils (%) (Auto) 71 % (31-73) Lymphocytes (%) (Auto) 19 % (24-48) L Monocytes (%) (Auto) 7 % (0-9) Eosinophils (%) (Auto) 2 % (0-3) Basophils (%) (Auto) 1 % (0-3) Neutrophils # (Auto) 4.6 x10^3uL (1.8-7.7) Lymphocytes # (Auto) 1.2 x10^3/uL (1.0-4.8) Monocytes # (Auto) 0.5 x10^3/uL (0.0-1.1) Eosinophils # (Auto) 0.1 x10^3/uL (0.0-0.7) Basophils # (Auto) 0.0 x10^3/uL (0.0-0.2) Sodium Level 140 mmol/L (136-145) Potassium Level 5.1 mmol/L (3.5-5.1) Chloride Level 109 mmol/L (98-107) H Carbon Dioxide Level 19 mmol/L (21-32) L Anion Gap 12 (6-14) Blood Urea Nitrogen 57 mg/dL (8-26) H Creatinine 2.9 mg/dL (0.7-1.3) H Estimated GFR (Cockcroft-Gault) 22.2 BUN/Creatinine Ratio 20 (6-20) Glucose Level 159 mg/dL (70-99) H Calcium Level 8.5 mg/dL (8.5-10.1) Total Bilirubin 0.2 mg/dL (0.2-1.0) Aspartate Amino Transferase (AST) 40 U/L (15-37) H Alanine Aminotransferase (ALT) 34 U/L (16-63) Alkaline Phosphatase 107 U/L (46-116) Troponin I Quantitative < 0.017 ng/mL (0.000-0.055) Total Protein 6.1 g/dL (6.4-8.2) L Albumin 2.7 g/dL (3.4-5.0) L Albumin/Globulin Ratio 0.8 (1.0-1.7) L Laboratory Tests 01/05/17 10:40 Laboratory Tests 01/05/17 10:40 EKG EKG [] Radiology/Procedures Radiology/Procedures [] Course & Med Decision Making Course & Med Decision Making Pertinent Labs and Imaging studies reviewed. (See chart for details) [place]-hallpike negative, Patient was noted to have orthostatic hypotension upon standing. Patient was symptomatic when he stands. Patient was provided with NS bolus as well as meclizine. CT scan completed. Spoke with Dr Martins in regards to admission for this patient. He agrees with this admission at this time. Patient agrees with admission at this time. Orders completed for admission. [] Dragon Disclaimer Dragon Disclaimer This electronic medical record was generated, in whole or in part, using a voice recognition dictation system. Departure Departure Impression: Primary Impression: Acute renal injury Additional Impression: Dehydration Disposition: ADMITTED INPATIENT Admitting Physician: Claudia Martins Condition: STABLE Referrals: CLAUDIA MARTINS MD (PCP) Problem Qualifiers CLOVER ALVAREZ APRN Jan 05, 2017 12:00
--- NOTE | 2017-01-05 12:04 | RAD ---
CT of the head, 01/05/2017: History: Dizziness, falls Comparison is made to a study from 08/17/2016. The ventricles are within normal limits in size. There is no shift of the midline structures. There is no evidence of acute intracranial hemorrhage or mass effect. IMPRESSION: No acute intracranial abnormality is detected. PQRS Compliance Statement: One or more of the following individualized dose reduction techniques were utilized for this examination: 1. Automated exposure control 2. Adjustment of the mA and/or kV according to patient size 3. Use of iterative reconstruction technique
--- NOTE | 2017-01-05 12:34 | ACF ---
KINGSTON,COLTEN 01/05/17 1234: Admit Criteria Forms Admit Criteria Forms Admit Criteria Forms RENAL FAILURE, ACUTE Clinical Indications for Admission to Inpatient Care ( Place 'X' for any and all applicable criteria): Admission is indicated for ALL (if I & II) or III of the following [A](2)(3)(4)( 5)(6)(7): [ ]I. Acute renal failure as indicated by ANY ONE of the following: [X]a) A 3-fold rise in serum creatinine from baseline [ ]b) Serum creatinine greater than 4 mg/dL (354 micromoles/L) with an acute rise greater than 0.5 mg/dL (44.2 micromoles/L) [ ]c) Reduction of more than 75% in estimated glomerular filtration rate from baseline [ ]d) Estimated glomerular filtration rate less than 35 mL/min/1.73m2 (0.59mL/sec/1.73m2)in a child up to 18 years of age [ ]e) Anuria indicated by ALL of the following: [ ]i) Adequate volume status [ ]ii) Cessation of urine output indicated by ANY ONE of the following: [ ]1) Urine output less than 0.3 mL/kg/hr for 24 hours [ ]2) Anuria (urine output less than 0.1 mL/kg/ hr) for 12 hours [X] II. Renal failure cannot be managed in an outpatient setting or observational care setting as indicating by ANY ONE of the following: [ ]a) Altered mental status that is severe or persistent [ ]b) Volume overload or Respiratory distress (eg, clinically significant pulmonary edema) that is severe or persistent [ ]c) Cardiac arrhythmias of immediate concern [ ]d) Hemodynamic instability [ ]e) Clinically significant electrolyte abnormality that requires inpatient care (eg, hyperkalemia with severe ECG findings)[B] [ ]f) Clinically significant metabolic abnormality (eg, acidosis) that is severe or persistent [ ]g) Acute treatment of renal failure (eg, renal replacement therapy) not feasible or appropriate in observational care setting [ ]h) Clinical situation too unstable or uncertain (eg, inadequate urine output, ongoing decline in renal function, etiology unclear) [ ]i) Necessary support and caregiver ability to comply with outpatient treatment cannot be arranged in observation care timeframe (eg, within 24 hours) [X]j) Other significant finding or clinical condition judged not to be within scope of observation care [ ]III.General contraindications and/or Inappropriate clinical situations for Observational Care in patients with Acute Renal Failure, when ANY ONE of the following is required: [ ]a) Prediction of prolongation of LOS based on ANY ONE of the following may be considered as a contraindication for observational care 2, 3, 4, 5, 6, 7, 8 , 9, 10, 11 [ ]i) Age > 65 yrs. [ ]ii) Patient arriving by ambulance [ ]iii) Patient with high acuity [ ]iv) Patient requiring vital sign monitoring [ ]v) Patient on IV medication [ ]b) Systolic blood pressures 180mmHg 3,12 [ ]c) Patient with altered mental status including delirium and other alteration of consciousness, (3) [ ]d) Patient whose discharge disposition will be to a senior care home or rehabilitation home should not be managed in Emergency Department Observation Unit. CMS rule requires 3 days hospital stay before such placement.3,13 [ ]e) Patient with failure to thrive due to broad array of etiologies 3, 16,17 [ ]f) Inability to ambulate 3,14 Extended stay beyond goal length of stay may be needed for(13) [ ]a) Continuing uremic complications [ ]b) Care for comorbidities [ ]c) acute renal failure [ ]d) Need for dialysis The original [employer] content created by [employer] has been revised. The portions of the content which have been revised are identified through the use of italic text or in bold, and [facility] [employer] has neither reviewed nor approved the modified material. All other unmodified content is copyright [employer]. Please see references footnoted in the original [employer] edition 2016 POLO WOODWARD MD 01/10/17 0356: Admit Criteria Forms Admit Criteria Forms Admit Criteria Forms I am unable to edit this form. This patient was placed as observation status. This is the only avenue in our electronic medical record for me to document this. All of the above information is not my professional medical opinion. OCLTEN ONOFRE Jan 05, 2017 12:34 POLO WOODWARD MD Jan 10, 2017 03:56
[2017-01-05] MEDS: IV NORMAL SALINE 1000ML BAG 1,000 ML IV SCH (12:55)
[2017-01-05 13:30] VITALS: BP 148/81
[2017-01-05 15:00] VITALS: BP 141/74
[2017-01-05] MEDS ORDERED: FURO40TA4 PO (18:12)
[2017-01-05] MEDS ORDERED: HYDROcodone/APAP 7.5/325MG 1 TAB TABLET PO PRN (18:15)
[2017-01-05] MEDS: CARVEDILOL 12.5 MG TABLET. PO SCH (18:30)
[2017-01-05 19:30] VITALS: BP 153/71
[2017-01-05 23:13] VITALS: BP 169/88
[2017-01-06] MEDS: IV NORMAL SALINE 1000ML BAG 1,000 ML IV SCH (02:25)
[2017-01-06 03:19] VITALS: BP 160/84
[2017-01-06 07:13] VITALS: BP 163/98
[2017-01-06 07:16] LABS: BASO % 1 % (0-3); EOS % 3 % (0-3); HEMATOCRIT 29.4 % (39.0-53.0); HEMOGLOBIN 9.6 g/dL (13.0-17.5); LYMPH # 1.4 x10^3/uL (1.0-4.8); LYMPH % 25 % (24-48); MEAN CORPUSCULAR HEMOGLOBIN 25 pg (25-35); MEAN CORPUSCULAR HGB CONC 33 g/dL (31-37); MEAN CORPUSCULAR VOLUME 76 fL (79-100); MONO % 10 % (0-9); NEUT % 61 % (31-73); PLATELET COUNT 169 x10^3/uL (140-400); RED BLOOD COUNT 3.86 x10^6/uL (4.30-5.70); RED CELL DISTRIBUTION WIDTH 16.3 % (11.5-14.5); WHITE BLOOD COUNT 5.6 x10^3/uL (4.0-11.0)
[2017-01-06 07:25] LABS: POTASSIUM 4.6 mmol/L (3.5-5.1)
[2017-01-06] MEDS: INSULIN ASPART 300 UNITS/3 ML INSULN.PEN SQ SCH ×3 (07:30→16:31)
--- NOTE | 2017-01-06 08:02 | PDOC ---
GENERAL General: vss and afebrile. renal function improved overnight with hydration. sugars good. ct head negative. chest clear and heart regular. continue present care and follow renal function. works in very hot environment, not using AC at home so far this year, and takes diuretics which probable cause of admission as looks much better this am. possible dc am if doing well. unable to dictate H&P due to system being down. Problems: VITAL SIGNS Vital Signs: Vital Signs Date Time Temp Pulse Resp B/P (MAP) Pulse Ox O2 Delivery O2 Flow Rate FiO2 01/06/17 07:13 97.9 68 18 163/98 (119) Nasal Cannula 97.9 01/06/17 03:19 97 I & O I & O Intake and Output 01/06/17 06:59 Intake Total 1000 ml Output Total 400 ml Balance 600 ml Intake IV Total 1000 ml Output Urine Total 400 ml # Voids 3 ALLERGIES Allergies: Allergies Coded Allergies Type Severity Reaction Last Updated Verified No Known Drug Allergies 07/23/14 No MEDS Medications: Current Medications Medications (Trade) Dose Ordered Sig/Mary Start Time Stop Time Status Last Admin Dose Admin Acetaminophen/ Hydrocodone Bitart (Lortab 7.5/325) 1 tab PRN Q6HRS PRN 01/05/17 18:15 Carvedilol (Coreg) 12.5 mg [id number] 01/05/17 18:30 Furosemide (Lasix) 40 mg [id number] 01/06/17 09:00 Insulin Aspart (NovoLOG) 5 units TIDAC 01/06/17 07:30 Losartan Potassium (Cozaar) 100 mg DAILY 01/06/17 09:00 Meclizine HCl (Antivert) 25 mg 1X ONCE 01/05/17 11:00 01/05/17 11:01 DC 01/05/17 10:58 25 MG Pantoprazole Sodium (Protonix) 40 mg DAILYAC 01/06/17 07:30 Sodium Chloride 1,000 ml @ 75 mls/hr [id number] 01/05/17 11:51 01/06/17 11:50 01/06/17 02:25 75 MLS/HR LAB Lab: Laboratory Tests Test 01/05/17 10:40 01/05/17 16:55 01/05/17 20:27 01/06/17 06:55 White Blood Count 6.5 x10^3/uL (4.0-11.0) 5.6 x10^3/uL (4.0-11.0) Red Blood Count 3.99 x10^6/uL (4.30-5.70) 3.86 x10^6/uL (4.30-5.70) Hemoglobin 9.8 g/dL (13.0-17.5) 9.6 g/dL (13.0-17.5) Hematocrit 30.3 % (39.0-53.0) 29.4 % (39.0-53.0) Mean Corpuscular Volume 76 fL (79-100) 76 fL (79-100) Mean Corpuscular Hemoglobin 25 pg (25-35) 25 pg (25-35) Mean Corpuscular Hemoglobin Concent 32 g/dL (31-37) 33 g/dL (31-37) Red Cell Distribution Width 16.1 % (11.5-14.5) 16.3 % (11.5-14.5) Platelet Count 181 x10^3/uL (140-400) 169 x10^3/uL (140-400) Neutrophils (%) (Auto) 71 % (31-73) 61 % (31-73) Lymphocytes (%) (Auto) 19 % (24-48) 25 % (24-48) Monocytes (%) (Auto) 7 % (0-9) 10 % (0-9) Eosinophils (%) (Auto) 2 % (0-3) 3 % (0-3) Basophils (%) (Auto) 1 % (0-3) 1 % (0-3) Neutrophils # (Auto) 4.6 x10^3uL (1.8-7.7) 3.4 x10^3uL (1.8-7.7) Lymphocytes # (Auto) 1.2 x10^3/uL (1.0-4.8) 1.4 x10^3/uL (1.0-4.8) Monocytes # (Auto) 0.5 x10^3/uL (0.0-1.1) 0.6 x10^3/uL (0.0-1.1) Eosinophils # (Auto) 0.1 x10^3/uL (0.0-0.7) 0.2 x10^3/uL (0.0-0.7) Basophils # (Auto) 0.0 x10^3/uL (0.0-0.2) 0.0 x10^3/uL (0.0-0.2) Sodium Level 140 mmol/L (136-145) 143 mmol/L (136-145) Potassium Level 5.1 mmol/L (3.5-5.1) 4.6 mmol/L (3.5-5.1) Chloride Level 109 mmol/L (98-107) 115 mmol/L (98-107) Carbon Dioxide Level 19 mmol/L (21-32) 18 mmol/L (21-32) Anion Gap 12 (6-14) 10 (6-14) Blood Urea Nitrogen 57 mg/dL (8-26) 43 mg/dL (8-26) Creatinine 2.9 mg/dL (0.7-1.3) 2.0 mg/dL (0.7-1.3) Estimated GFR (Cockcroft-Gault) 22.2 34.0 BUN/Creatinine Ratio 20 (6-20) Glucose Level 159 mg/dL (70-99) 96 mg/dL (70-99) Calcium Level 8.5 mg/dL (8.5-10.1) 8.0 mg/dL (8.5-10.1) Total Bilirubin 0.2 mg/dL (0.2-1.0) Aspartate Amino Transf (AST/SGOT) 40 U/L (15-37) Alanine Aminotransferase (ALT/SGPT) 34 U/L (16-63) Alkaline Phosphatase 107 U/L (46-116) Troponin I Quantitative < 0.017 ng/mL (0.000-0.055) Total Protein 6.1 g/dL (6.4-8.2) Albumin 2.7 g/dL (3.4-5.0) Albumin/Globulin Ratio 0.8 (1.0-1.7) Glucose (Fingerstick) 77 mg/dL (70-99) 122 mg/dL (70-99) Test 01/06/17 07:18 Glucose (Fingerstick) 100 mg/dL (70-99) CLAUDIA MARTINS MD Jan 06, 2017 08:02
[2017-01-06 11:08] VITALS: BP 164/94
[2017-01-06] MEDS: CARVEDILOL 12.5 MG TABLET. PO SCH ×2 (13:19→16:26)
[2017-01-06] MEDS: PANTOPRAZOLE 40 MG TABLET.DR. PO SCH (13:19)
[2017-01-06] MEDS: LOSARTAN POTASSIUM 50 MG TABLET. PO SCH (13:19)
[2017-01-06] MEDS: FUROSEMIDE 40 MG TABLET. PO SCH ×2 (13:20→16:25)
[2017-01-06 15:03] VITALS: BP 148/85
[2017-01-06 19:44] VITALS: BP 125/75
[2017-01-06 23:30] VITALS: BP 151/80
[2017-01-07 03:22] VITALS: BP 129/75
[2017-01-07] MEDS: PANTOPRAZOLE 40 MG TABLET.DR. PO SCH (06:24)
[2017-01-07 07:00] VITALS: BP 139/81
[2017-01-07] MEDS: FUROSEMIDE 40 MG TABLET. PO SCH (08:16)
[2017-01-07] MEDS: CARVEDILOL 12.5 MG TABLET. PO SCH ×2 (08:17→17:11)
[2017-01-07] MEDS: LOSARTAN POTASSIUM 50 MG TABLET. PO SCH (08:18)
[2017-01-07] MEDS: INSULIN ASPART 300 UNITS/3 ML INSULN.PEN SQ SCH ×5 (08:28→17:18)
[2017-01-07 11:00] VITALS: BP 128/74
[2017-01-07] MEDS ORDERED: DEXTROSE 50% 25 GM / 50ML DISP.SYRIN. IV PRN (12:45)
[2017-01-07 13:24] LABS: HEMATOCRIT 30.7 % (39.0-53.0); HEMOGLOBIN 9.9 g/dL (13.0-17.5); RED CELL DISTRIBUTION WIDTH 16.1 % (11.5-14.5); WHITE BLOOD COUNT 6.8 x10^3/uL (4.0-11.0)
[2017-01-07 13:36] LABS: CREATININE 2.2 mg/dL (0.7-1.3); GFR 30.5; POTASSIUM 4.3 mmol/L (3.5-5.1)
--- NOTE | 2017-01-07 13:52 | PDOC ---
SUBJECTIVE Subjective He is feeling okay and does not happen new complaints OBJECTIVE Vital Signs Vital Signs Date Time Temp Pulse Resp B/P (MAP) Pulse Ox O2 Delivery O2 Flow Rate FiO2 01/07/17 11:00 97.9 66 20 128/74 (92) 98 Room Air 97.9 01/07/17 08:18 74 139/81 01/07/17 08:17 74 139/81 01/07/17 07:45 Room Air 01/07/17 07:00 98.4 74 20 139/81 (100) 95 Room Air 98.4 01/07/17 03:22 98.1 74 18 129/75 (93) 97 Room Air 98.1 01/06/17 23:30 97.9 73 18 151/80 (103) 96 Room Air 97.9 01/06/17 20:00 Room Air 01/06/17 19:44 98.1 69 18 125/75 (92) 98 Room Air 98.1 01/06/17 16:26 64 148/85 01/06/17 15:03 98.0 64 18 148/85 (106) 99 Room Air 98.0 I & O Intake and Output 01/07/17 07:00 Intake Total 360 ml Output Total 1200 ml Balance -840 ml Intake Oral 360 ml Output Urine Total 1200 ml # Voids 4 PHYSICAL EXAM Physical Exam Lungs clear Heart regular rate and rhythm Abdomen soft nontender Extremities no edema ASSESSMENT/PLAN Assessment/Plan 1-acute renal failure due to dehydration, will continue IV fluid and hold Lasix 2-diabetes mellitus type 2 3-history of congestive heart failure monitor for fluid overload 4-peripheral vascular disease, and history of amputation left toe 5-hypertension 6-smoker Problems: COMMENT Lab Laboratory Tests Test 01/06/17 15:54 01/06/17 21:01 01/07/17 07:29 01/07/17 11:18 Glucose (Fingerstick) 160 mg/dL (70-99) 97 mg/dL (70-99) 121 mg/dL (70-99) 146 mg/dL (70-99) Test 01/07/17 13:08 White Blood Count 6.8 x10^3/uL (4.0-11.0) Red Blood Count 4.00 x10^6/uL (4.30-5.70) Hemoglobin 9.9 g/dL (13.0-17.5) Hematocrit 30.7 % (39.0-53.0) Mean Corpuscular Volume 77 fL (79-100) Mean Corpuscular Hemoglobin 25 pg (25-35) Mean Corpuscular Hemoglobin Concent 32 g/dL (31-37) Red Cell Distribution Width 16.1 % (11.5-14.5) Platelet Count 188 x10^3/uL (140-400) Sodium Level 143 mmol/L (136-145) Potassium Level 4.3 mmol/L (3.5-5.1) Chloride Level 113 mmol/L (98-107) Carbon Dioxide Level 17 mmol/L (21-32) Anion Gap 13 (6-14) Blood Urea Nitrogen 47 mg/dL (8-26) Creatinine 2.2 mg/dL (0.7-1.3) Estimated GFR (Cockcroft-Gault) 30.5 Glucose Level 91 mg/dL (70-99) Calcium Level 8.0 mg/dL (8.5-10.1) JAZMYN SMITH MD Jan 07, 2017 13:52
[2017-01-07 15:00] VITALS: BP 154/91
[2017-01-07] MEDS: POTASSIUM CL 20MEQ D5-0.45NACL 1,000 ML IV SCH (15:01)
[2017-01-07 19:00] VITALS: BP 168/97
[2017-01-07 23:00] VITALS: BP 132/75
[2017-01-08] MEDS: POTASSIUM CL 20MEQ D5-0.45NACL 1,000 ML IV SCH ×3 (00:29→20:50)
[2017-01-08 03:00] VITALS: BP 145/85
[2017-01-08 04:37] LABS: HEMATOCRIT 29.6 % (39.0-53.0); HEMOGLOBIN 9.5 g/dL (13.0-17.5); RED BLOOD COUNT 3.91 x10^6/uL (4.30-5.70); RED CELL DISTRIBUTION WIDTH 15.9 % (11.5-14.5); WHITE BLOOD COUNT 6.1 x10^3/uL (4.0-11.0)
[2017-01-08 05:44] LABS: CALCIUM 7.7 mg/dL (8.5-10.1); CREATININE 2.2 mg/dL (0.7-1.3); GFR 30.5; POTASSIUM 4.7 mmol/L (3.5-5.1)
[2017-01-08 07:00] VITALS: BP 152/83
--- NOTE | 2017-01-08 07:48 | RAD ---
Examination: Ultrasound kidneys History: History of acute renal failure Comparison: 04/23/2016. Findings: The right kidney measures 13.0 x 5.5 x 6.1 cm. Left kidney measures 12.9 x 5.5 x 6.1 cm. The urinary bladder is mildly distended. No evidence of hydronephrosis. Impression: Minimally enlarged bilateral kidneys, otherwise grossly unremarkable.
[2017-01-08] MEDS: PANTOPRAZOLE 40 MG TABLET.DR. PO SCH (08:21)
[2017-01-08] MEDS: CARVEDILOL 12.5 MG TABLET. PO SCH ×2 (08:21→17:20)
[2017-01-08] MEDS: LOSARTAN POTASSIUM 50 MG TABLET. PO SCH (08:21)
[2017-01-08] MEDS: INSULIN ASPART 300 UNITS/3 ML INSULN.PEN SQ SCH ×6 (08:27→17:26)
[2017-01-08 11:00] VITALS: BP 156/89
--- NOTE | 2017-01-08 11:24 | PDOC ---
SUBJECTIVE Subjective stable without new complaints OBJECTIVE Vital Signs Vital Signs Date Time Temp Pulse Resp B/P (MAP) Pulse Ox O2 Delivery O2 Flow Rate FiO2 01/08/17 08:21 70 152/83 01/08/17 08:21 70 152/83 01/08/17 07:00 98.2 70 16 152/83 (106) 97 Room Air 98.2 01/08/17 03:00 98.3 66 20 145/85 (105) 97 Room Air 98.3 01/07/17 23:00 98.4 67 20 132/75 (94) 97 Room Air 98.4 01/07/17 20:45 Room Air 01/07/17 19:00 98.1 67 18 168/97 (120) 96 Room Air 98.1 01/07/17 17:11 63 154/91 01/07/17 15:00 97.6 63 20 154/91 (112) 98 Room Air 97.6 I & O Intake and Output 01/08/17 07:00 Intake Total 2319 ml Output Total 1150 ml Balance 1169 ml Intake Oral 850 ml IV Total 1469 ml Output Urine Total 1150 ml PHYSICAL EXAM Physical Exam no change ASSESSMENT/PLAN Assessment/Plan 1-acute renal failure due to dehydration, will continue IV fluid and hold Lasix , 2-diabetes mellitus type 2 3-history of congestive heart failure monitor for fluid overload 4-peripheral vascular disease, and history of amputation left toe 5-hypertension 6-smoker renal sono ok, continue plan with hydration carefully, Dr. Ribera will resume care in AM Problems: COMMENT Lab Laboratory Tests Test 01/07/17 13:08 01/07/17 16:57 01/07/17 20:29 01/08/17 04:25 White Blood Count 6.8 x10^3/uL (4.0-11.0) 6.1 x10^3/uL (4.0-11.0) Red Blood Count 4.00 x10^6/uL (4.30-5.70) 3.91 x10^6/uL (4.30-5.70) Hemoglobin 9.9 g/dL (13.0-17.5) 9.5 g/dL (13.0-17.5) Hematocrit 30.7 % (39.0-53.0) 29.6 % (39.0-53.0) Mean Corpuscular Volume 77 fL (79-100) 76 fL (79-100) Mean Corpuscular Hemoglobin 25 pg (25-35) 24 pg (25-35) Mean Corpuscular Hemoglobin Concent 32 g/dL (31-37) 32 g/dL (31-37) Red Cell Distribution Width 16.1 % (11.5-14.5) 15.9 % (11.5-14.5) Platelet Count 188 x10^3/uL (140-400) 164 x10^3/uL (140-400) Sodium Level 143 mmol/L (136-145) 142 mmol/L (136-145) Potassium Level 4.3 mmol/L (3.5-5.1) 4.7 mmol/L (3.5-5.1) Chloride Level 113 mmol/L (98-107) 112 mmol/L (98-107) Carbon Dioxide Level 17 mmol/L (21-32) 19 mmol/L (21-32) Anion Gap 13 (6-14) 11 (6-14) Blood Urea Nitrogen 47 mg/dL (8-26) 44 mg/dL (8-26) Creatinine 2.2 mg/dL (0.7-1.3) 2.2 mg/dL (0.7-1.3) Estimated GFR (Cockcroft-Gault) 30.5 30.5 Glucose Level 91 mg/dL (70-99) 177 mg/dL (70-99) Calcium Level 8.0 mg/dL (8.5-10.1) 7.7 mg/dL (8.5-10.1) Glucose (Fingerstick) 136 mg/dL (70-99) 181 mg/dL (70-99) Test 01/08/17 07:36 Glucose (Fingerstick) 182 mg/dL (70-99) JAZMYN SMITH MD Jan 08, 2017 11:24
[2017-01-08 15:00] VITALS: BP 166/99
[2017-01-08 19:00] VITALS: BP 143/76
[2017-01-08 23:00] VITALS: BP 141/73
[2017-01-09 03:00] VITALS: BP 161/79
[2017-01-09 04:05] LABS: HEMATOCRIT 28.4 % (39.0-53.0); HEMOGLOBIN 9.2 g/dL (13.0-17.5); RED BLOOD COUNT 3.74 x10^6/uL (4.30-5.70); WHITE BLOOD COUNT 5.8 x10^3/uL (4.0-11.0)
[2017-01-09 05:09] LABS: CALCIUM 8.2 mg/dL (8.5-10.1); CREATININE 1.9 mg/dL (0.7-1.3); GFR 36.1; POTASSIUM 4.8 mmol/L (3.5-5.1)
[2017-01-09] MEDS: POTASSIUM CL 20MEQ D5-0.45NACL 1,000 ML IV SCH (06:14)
[2017-01-09 07:00] VITALS: BP 157/96
--- NOTE | 2017-01-09 08:21 | PDOC3 ---
DISCHARGE SUMMARY DISCHARGE SUMMARY: patient ready for discharge. creatinine has decreased to 1.9. feeling much better. 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 encouraged hydration at work and will decrease lasix to once a day instead of twice for now. will see next week in office and recheck labs then. CLAUDIA MARTINS MD Jan 09, 2017 08:21
[2017-01-09] MEDS: PANTOPRAZOLE 40 MG TABLET.DR. PO SCH (08:22)
[2017-01-09] MEDS: CARVEDILOL 12.5 MG TABLET. PO SCH (08:23)
[2017-01-09] MEDS: LOSARTAN POTASSIUM 50 MG TABLET. PO SCH (08:23)
[2017-01-09] MEDS: INSULIN ASPART 300 UNITS/3 ML INSULN.PEN SQ SCH ×2 (08:35)
[2017-01-09] MEDS ORDERED: FURO20TA3 PO (10:11)
[2017-01-09 11:00] VITALS: BP 170/97
== END 2017-01-09 11:35 | disposition home or self-care (01) | DRG 683 ==
LOC: ER 10:24 → 4 NORTH 11:41
PROVIDERS: ADMIT Family Medicine; ATTEND Family Medicine
DX: N17.1 Acute kidney failure with acute cortical necrosis (principal); E44.1 Mild protein-calorie malnutrition; E86.0 Dehydration; I11.0 Hypertensive heart disease with heart failure; I50.9 Heart failure, unspecified; E11.51 Type 2 diabetes mellitus with diabetic peripheral angiopathy without gangrene; K21.9 Gastro-esophageal reflux disease without esophagitis; I95.1 Orthostatic hypotension; F17.200 Nicotine dependence, unspecified, uncomplicated; Z89.429 Acquired absence of other toe(s), unspecified side; Z68.30 Body mass index [BMI] 30.0-30.9, adult
CPT/HCPCS: 36415; 70450; 76770; 80048; 80053; 82962; 84484; 85027; 93005; 96360; J1815; J7030; J8597; 99285-25